=== PATIENT | female | born 1995 | race Hispanic/Latino ===

== ENCOUNTER 2021-09-29 11:48 | Inpatient (IN) | payer BC, OTHER ==
[~2021-09-29] VITALS: Ht 149.9 cm; Wt 78.0 kg
[2021-09-29 12:47] LABS: APPEARANCE,URINE Clear (CLEAR); BILIRUBIN,URINE Negative (NEGATIVE); COLOR,URINE Yellow (YELLOW); GLUCOSE, URINE (UA) Negative (NEGATIVE); KETONES,URINE Negative (NEGATIVE); LEUKOCYTE ESTERASE ,URINE Large (NEGATIVE); NITRATE,URINE Negative (NEGATIVE); OCCULT BLOOD,URINE Negative (NEGATIVE); PH,URINE 7.5 (5.0-8.0); PROTEIN,URINE Negative (NEGATIVE); UROBILINOGEN,URINE 0.2 mg/dL (0.2-1.0)
[2021-09-29 12:55] LABS: AMPHET/METH SCREEN,URINE NEGATIVE (NEGATIVE); BARBITURATE SCREEN, URINE NEGATIVE (NEGATIVE); BENZODIAZEPINES SCREEN,URINE NEGATIVE (NEGATIVE); CANNABINOID SCREEN,URINE NEGATIVE (NEGATIVE); COCAINE SCREEN,URINE NEGATIVE (NEGATIVE); OPIATE SCREEN,URINE NEGATIVE (NEGATIVE); PHENCYCLIDINE SCREEN,URINE NEGATIVE (NEGATIVE)
[2021-09-29] MEDS ORDERED: PROMETHAZINE HCL 25 MG/ML 1ML AMPULE IM PRN (13:00)
[2021-09-29] MEDS ORDERED: NALOXONE HCL 0.4 MG/1 ML ML IV PRN (13:00)
[2021-09-29] MEDS ORDERED: EPHEDRINE SULFATE 50 MG/ML AMPULE IVP PRN (13:00)
[2021-09-29] MEDS ORDERED: LACTATED RINGERS 1000ML 1,000 ML IV PRN (13:00)
[2021-09-29] MEDS ORDERED: MEPERIDINE-PF 50 MG/ML SYG IVP PRN (13:00)
[2021-09-29] MEDS ORDERED: OXYTOCIN-LR 20 UNITS/1000 ML 1,000 ML IV SCH (13:00)
[2021-09-29] MEDS ORDERED: LACTATED RINGERS 500 ML 500 ML IV PRN (13:00)
[2021-09-29] MEDS ORDERED: ROPIVACAINE 0.2% 100ML VIAL 100 ML EP SCH (13:00)
[2021-09-29] MEDS ORDERED: AMPICILLIN 2GM+NS 100ML 100 ML IV SCH (13:00)
[2021-09-29 13:04] LABS: HEMATOCRIT 35.1 % (36-48); MEAN CORPUSCULAR HEMOGLOBIN 28.3 pg (27.0-33.0); MEAN CORPUSCULAR HGB CONC 32.5 g/dL (32.0-36.0); MEAN CORPUSCULAR VOLUME 87.1 fL (79-99); RED BLOOD CELL COUNT(AUTO) 4.03 MIL/uL (4.00-5.50); RED CELL DISTRIBUTION WIDTH 13.1 % (11.0-15.5)
[2021-09-29] MEDS ORDERED: OXYTOCIN-LR 20 UNITS/1000 ML 1,000 ML IV ONE (13:08)
[2021-09-29] MEDS ORDERED: LACTATED RINGERS 1000ML 1,000 ML IV ONE (13:08)
[2021-09-29] MEDS ORDERED: AMPICILLIN 2GM+NS 100ML 100 ML IV ONE (13:08)
[2021-09-29 13:11] LABS: BACTERIA,URINE Few /HPF (None Seen); RBC,URINE 0-1 /HPF (0-1); YEAST,URINE BUDDING Rare /HPF (None Seen)
[2021-09-29] MEDS ORDERED: AMPICILLIN 1GM+NS 50ML 50 ML IV ONE ×2 (16:32→21:08)
[2021-09-29] MEDS ORDERED: AMPICILLIN 1GM+NS 50ML 50 ML IV SCH (21:30)
[2021-09-29] MEDS ORDERED: LIDOCAINE HCL 1% 20 ML VIAL ONE (22:14)
[2021-09-29] MEDS ORDERED: PROPOFOL 10 MG/ML 20ML VIAL IV ONE ×2 (22:38→22:49)
[2021-09-29] MEDS ORDERED: FENTANYL CITRATE PF 50 MCG/1 ML 2ML VIAL ONE ×2 (22:43→23:03)
[2021-09-29] MEDS ORDERED: CEFAZOLIN SODIUM 1 GM VIAL ONE (22:52)
[2021-09-29] MEDS ORDERED: CALDOLOR 800MG+NS 250ML 250 ML IV PRN (23:30)
[2021-09-29] MEDS ORDERED: CEFAZOLIN SODIUM 1 GM VIAL IVP PRN (23:30)
[2021-09-29] MEDS ORDERED: OXYTOCIN-LR 20 UNITS/1000 ML 1,000 ML IV PRN (23:30)
[2021-09-29] MEDS ORDERED: LACTATED RINGERS 1000ML 1,000 ML IV SCH (23:30)
[2021-09-29] MEDS ORDERED: DEXTROSE 5 %-0.45 % NACL 1,000 ML IV PRN (23:30)
[2021-09-29] MEDS ORDERED: 0.9%NACL 10ML VIAL IVP PRN (23:30)
[2021-09-29] MEDS ORDERED: MORPHINE 2 MG SYG ONE (23:49)
[2021-09-30] MEDS: CALDOLOR 800MG+NS 250ML 250 ML IV SCH ×2 (00:12→09:54)
[2021-09-30 02:18] VITALS: BP 117/68
[2021-09-30] MEDS: PROMETHAZINE HCL 25 MG/ML 1ML AMPULE IM PRN ×2 (02:53→06:24)
[2021-09-30] MEDS: MEPERIDINE-PF 75 MG/ML SYG IM PRN ×2 (02:54→06:25)
[2021-09-30] MEDS ORDERED: MELA5CAP PO (03:22)
[2021-09-30] MEDS ORDERED: PREN1TAB26 PO (03:22)
[2021-09-30 03:40] VITALS: BP 113/50
[2021-09-30] MEDS: CEFAZOLIN SODIUM 1 GM VIAL IVP SCH ×2 (06:26→14:23)
[2021-09-30 06:44] LABS: HEMATOCRIT 30.9 % (36-48); MEAN CORPUSCULAR HEMOGLOBIN 28.5 pg (27.0-33.0); MEAN CORPUSCULAR HGB CONC 32.7 g/dL (32.0-36.0); RED BLOOD CELL COUNT(AUTO) 3.55 MIL/uL (4.00-5.50); WHITE BLOOD COUNT (AUTO) 21.7 K/uL (4.8-10.8)
[2021-09-30 07:20] VITALS: BP 105/56
[2021-09-30] MEDS ORDERED: BISACODYL 10 MG SUPP.RECT RC PRN (09:30)
[2021-09-30] MEDS ORDERED: ACETAMINOPHEN 500 MG TABLET PO PRN (09:30)
[2021-09-30] MEDS ORDERED: DIPH,PERTUSS(ACELL),TET VAC/PF 0.5 ML VIAL IM ONE (09:30)
[2021-09-30] MEDS ORDERED: LANOLIN 30GM OINTMENT TP PRN (09:30)
[2021-09-30] MEDS ORDERED: DOCUSATE SODIUM 100 MG CAP PO ONE (09:41)
[2021-09-30] MEDS: SIMETHICONE 80 MG TAB.CHEW PO PRN ×2 (09:52→21:07)
[2021-09-30 11:08] VITALS: BP 115/69
[2021-09-30 11:40] LABS: RAPID PLASMA REAGIN NONREACTIVE (NONREACTIVE)
[2021-09-30] MEDS: HYDROCODONE/ACETAMINOPHEN 5/325 MG TAB PO PRN (12:19)
[2021-09-30 17:10] VITALS: BP 113/70
[2021-09-30] MEDS: IBUPROFEN 600 MG TABLET PO PRN (17:13)
[2021-09-30] MEDS: ACETAMINOPHEN WITH CODEINE 1 TAB TAB PO PRN (18:29)
[2021-09-30 19:22] VITALS: BP 97/50
[2021-09-30] MEDS: DOCUSATE SODIUM 100 MG CAP PO SCH (21:07)
[2021-10-01 00:49] VITALS: BP 114/41
[2021-10-01] MEDS: HYDROCODONE/ACETAMINOPHEN 5/325 MG TAB PO PRN (00:55)
[2021-10-01 03:38] VITALS: BP 103/49
[2021-10-01 07:58] VITALS: BP 112/55
[2021-10-01] MEDS: DOCUSATE SODIUM 100 MG CAP PO SCH (08:44)
[2021-10-01] MEDS: SIMETHICONE 80 MG TAB.CHEW PO PRN (08:44)
[2021-10-01] MEDS: ACETAMINOPHEN WITH CODEINE 1 TAB TAB PO PRN (08:45)
[2021-10-01] MEDS: IBUPROFEN 600 MG TABLET PO PRN (10:29)
[2021-10-01 11:45] VITALS: BP 119/52
[2021-10-01 11:56] VITALS: BP 124/76
== END 2021-10-01 12:45 | disposition home or self-care (01) | DRG 788 ==
LOC: EDH 11:48 → OBSVTOIN 11:49 → LDH 11:49 → WSH 09-30 02:12
PROVIDERS: ADMIT Internal Medicine; ATTEND Internal Medicine
PROC: 10D00Z1 Extraction of Products of Conception, Low, Open Approach (ICD-10-PCS; principal; 2021-09-29 22:48)
DX: O76 Abnormality in fetal heart rate and rhythm complicating labor and delivery (principal); O62.2 Other uterine inertia; O99.824 Streptococcus B carrier state complicating childbirth; Z37.0 Single live birth; O77.0 Labor and delivery complicated by meconium in amniotic fluid; Z3A.39 39 weeks gestation of pregnancy; O66.5 Attempted application of vacuum extractor and forceps
CPT/HCPCS: 36415; 59510; 74018; 80305; 81001; 82120; 85027; 86592; 86701; 86850; 86900; 86901; 87088; 87340; 87390; 90715; A4314; A4344; G0378; J0290; J0690; J1741; J2175; J2550; J2590; J2704; J2795; J3010; J7120